=== PATIENT | female | born 1965 ===

== ENCOUNTER 2020-07-27 20:12 | Emergency (ER) | payer OTHER ==
[~2020-07-27] VITALS: Ht 157.5 cm; Wt 61.2 kg
[2020-07-27] MEDS ORDERED: PROTONIX20 MG PO (23:48)
[2020-07-27] MEDS ORDERED: CARAFATE1 GM PO (23:48)
== END 2020-07-27 23:57 | disposition home or self-care (01) ==
LOC: ER 20:12
DX: K29.70 Gastritis, unspecified, without bleeding (principal); I10 Essential (primary) hypertension